=== PATIENT | female | born 1975 | race Caucasian/White ===

== ENCOUNTER 2025-07-08 00:09 | Day surgery (SDC) | payer BC, SELFPAY ==
[2025-06-26 14:31] VITALS: BMI 28.2
[2025-07-08 07:13] VITALS: BP 130/85; PULSE 91; RESP 16; TEMP 36.4; O2SAT 100
[2025-07-08 07:19] LABS: BEDSIDEPREGUCG Negative (Negative)
[2025-07-08] MEDS: LACTATED RINGERS 1,000 ML 150 ML IV CONT (07:25)
--- NOTE | 2025-07-08 07:38 | WPDANESEPPF ---
Anes - Initial Pre Proc Eval Procedure: Operation Date: 07/08/25 08:00 Proposed Procedures p Screening Colonoscopy - Vito Russell MD Date/Time: 07/08/25 07:38 Surgeon: Vito Russell MD Pre Op Diagnosis: Family history of malignant neoplasm of digestive Patient Data Age: 49 Gender: F Height: 1.68 m Weight: 82.4 kg Last Vital Signs Temp 36.4 C L 07/08/25 07:13 Pulse 91 07/08/25 07:13 Resp 16 07/08/25 07:13 BP 130/85 07/08/25 07:13 Pulse Ox 100 07/08/25 07:13 O2 Del Method Room Air 07/08/25 07:13 Allergies Allergy/AdvReac Type Severity Reaction Status Date / Time No Known Allergies Allergy Verified 07/08/25 07:11 Home Medications ?Medication ?Instructions ?Recorded ?Confirmed ?Type sertraline 50 mg tablet 50 mg PO DAILY 06/26/25 07/08/25 History topiramate 50 mg tablet 50 mg PO BID 06/26/25 07/08/25 History Laboratory Tests 07/08/25 07:13 POC Urine HCG, Qual Negative (Negative) Patient hx anesthesia problems: none Family hx anesthesia problems: none Results Review: All pre-operative results and documents have been reviewed as part of the pre-operative evaluation. [facility] Social History Social History Smoking status: Never smoker Substance use type: does not use Living arrangements: with family Spiritual care concerns: No Anes - Eval Final PreProcedure Day of Procedure 07/08/25 07:38 Patient weight: obese Heart: regular rate and rhythm Lungs: clear to auscultation Airway: Mallampati scale class II Neurological: alert and oriented Last oral intake: >/= 8 hours ASA classification: II Emergent: no Anesthetic plan: proceed Anesthesia type and monitoring: general GIVS and standard monitoring Results Review: All pre-operative results and documents have been reviewed as part of the pre-operative evaluation. Informed Consent: The patient's anesthetic plan and its attendant risks and benefits were discussed with the patient/family/POA. Questions were solicited and answers provided to the satisfaction of the patient/family/POA.
--- NOTE | 2025-07-08 07:52 | PM.HPGS ---
History of Present Illness History of Present Illness Consent: Risks, benefits, and alternatives have been discussed and questions answered. Patient agrees to proceed with procedure. Chief complaint: Family history of malignant neoplasm of digestive Narrative: Temitope Wolf is a 49 year old female here for first screening colonoscopy Review of Systems Review of Systems: All systems reviewed & are unremarkable except as noted in HPI and below PMFSH Past Medical History Medical History (Updated 07/08/25 @ 07:53 by Vito Russell MD) Colon cancer screening Social History Social History Smoking status: Never smoker Substance use type: does not use Living arrangements: with family Spiritual care concerns: No Meds Home Medications and Allergies Home Medications ?Medication ?Instructions ?Recorded ?Confirmed ?Type sertraline 50 mg tablet 50 mg PO DAILY 06/26/25 07/08/25 History topiramate 50 mg tablet 50 mg PO BID 06/26/25 07/08/25 History Allergies Allergy/AdvReac Type Severity Reaction Status Date / Time No Known Allergies Allergy Verified 07/08/25 07:11 Vital Signs Vital Signs - 24 hr 07/08/25 07:13 Temperature 97.5 F L Pulse Rate 91 Respiratory Rate 16 Blood Pressure 130/85 Pulse Oximetry 100 Oxygen Delivery Room Air Exam Const: General: comfortable and no acute distress HENMT: Face/Nose/Sinus: Normal nares present Eyes: General: appearance normal, both eyes and all related structures Resp: Auscultation: clear to auscultation bilaterally Cardio: Rate: regular rate Rhythm: regular rhythm GI: Inspection: non-distended GI Palp: Yes Soft to palpation Skin: General skin exam: normal color Extrem: General: normal to inspection Psych: Mental Status: mental status grossly normal Assessment and Plan Assessment and plan (1) Colon cancer screening: Code(s): Z12.11 - Encounter for screening for malignant neoplasm of colon Status: Acute Assessment and Plan: colonoscopy
[2025-07-08 08:05] VITALS: BP 104/61; PULSE 89; RESP 20; O2SAT 100
[2025-07-08 08:15] VITALS: BP 105/70; PULSE 87; RESP 19; O2SAT 100
[2025-07-08 08:25] VITALS: BP 108/77; PULSE 78; RESP 19; O2SAT 96
== END 2025-07-08 08:30 | disposition home or self-care (01) ==
PROVIDERS: Anesthesiology; PCP Internal Medicine; Referring Provider Internal Medicine; Visit Provider Internal Medicine Gastroenterology
PROC: 0DJD8ZZ Inspection of Lower Intestinal Tract, Via Natural or Artificial Opening Endoscopic (ICD-10-PCS; CPT 45378; principal; 2025-07-08 08:00)
DX: Z12.11 Encounter for screening for malignant neoplasm of colon (principal); K64.8 Other hemorrhoids; K57.30 Diverticulosis of large intestine without perforation or abscess without bleeding; E66.9 Obesity, unspecified; Z68.29 Body mass index [BMI] 29.0-29.9, adult; Z80.0 Family history of malignant neoplasm of digestive organs
CPT/HCPCS: 45378; J7120